=== PATIENT | male | born 1935 | race Caucasian/White ===

== ENCOUNTER 2018-04-01 08:07 | Inpatient (IN) | payer MEDICARE, OTHER ==
[~2018-04-01] VITALS: Ht 180.3 cm; Wt 101.5 kg
[2018-04-01] MEDS ORDERED: acetaminophen 325mg tablet PO STA (08:33)
[2018-04-01] MEDS ORDERED: piperacillin/tazo 3.375gm/50ml 50 ML IV ONE (08:35)
[2018-04-01] MEDS ORDERED: vancomycin/NS 1 GM ADD-VANTAGE 250 ML IV ONE (08:35)
[2018-04-01 09:01] LABS: ABG HCO3 18.4 mmol/L (22.0-26.0); ABG PCO2 (T) 30.8 mmHg (35.0-48.0); ABG PH (T) 7.394 (7.350-7.450); ALLEN'S TEST Positive; FCOHb 0.9 % (0.5-1.5); FMetHb 0.3 % (0.3-1.12); FO2Hb 95.8 % (94-100); MINUTE VOLUME 25 L/min; RESPIRATORY RATE 16 b/min; RESPIRATORY RATE (OBSERVED) 23 b/min; TIDAL VOLUME 598 mL; TOTAL HEMOGLOBIN 17.7 G/dl (14.0-18.0)
[2018-04-01 09:10] LABS: BASOPHILS % (AUTO) 0.2 % (0-1); EOSINOPHILS # (AUTO) 0.1 X10'3 (0-0.9); EOSINOPHILS % (AUTO) 0.3 % (0-6); HEMATOCRIT 54.4 % (42.0-52.0); LYMPHOCYTES # (AUTO) 1.1 X10'3 (1.1-4.8); LYMPHOCYTES % (AUTO) 4.9 % (21-51); MEAN CORPUSCULAR HEMOGLOBIN 31.9 PG (27.0-31.0); MEAN CORPUSCULAR HGB CONC 33.8 % (33.0-36.5); MEAN CORPUSCULAR VOLUME 94.5 FL (78-98); MEAN PLATELET VOLUME 10.4 FL (7.4-10.4); MONOCYTES # (AUTO) 1.1 X10'3 (0-0.9); MONOCYTES % (AUTO) 4.9 % (2-12); NEUTROPHILS % (AUTO) 89.7 % (42-75); PLATELET COUNT 226 X10'3 (140-440); RED BLOOD COUNT 5.76 X10'6 (4.70-6.10); RED CELL DISTRIBUTION WIDTH 13.6 % (11.5-14.5); WHITE BLOOD COUNT 22.3 X10'3 (4.5-11.0)
[2018-04-01] MEDS ORDERED: normal saline 1000ML IV soln IV ONE (09:10)
[2018-04-01] MEDS ORDERED: diltiazem 5mg/ml 5ml inj. IV ONE (09:10)
[2018-04-01 09:12] LABS: HEMOGLOBIN 18.4 g/dl (14.0-17.9)
[2018-04-01 09:32] LABS: D-DIMER 0.82 MG/L FEU (0-0.50); INR 3.4 INR; PARTIAL THROMBOPLASTIN TIME 39 SECONDS (22-32); PROTHROMBIN TIME 32.7 SECONDS (9.0-12.0)
--- NOTE | 2018-04-01 09:35 | NUR ---
PT'S BREATHING IS LESS LABORED AND TACHY AFTER BEING PLACED ON BIPAP
[2018-04-01] MEDS ORDERED: CARV6.253 PO (10:09)
[2018-04-01] MEDS ORDERED: POTA10TA19 PO (10:09)
[2018-04-01] MEDS ORDERED: CINN500C2 (10:19)
[2018-04-01] MEDS ORDERED: FURO-150 PO (10:19)
[2018-04-01] MEDS ORDERED: LOSA25TA96 PO (10:19)
[2018-04-01] MEDS ORDERED: MULT-1074 PO (10:19)
[2018-04-01] MEDS ORDERED: CETI10TA15 PO (10:19)
[2018-04-01] MEDS ORDERED: SIMV10TA2 PO (10:19)
[2018-04-01] MEDS ORDERED: METF500T PO (10:19)
[2018-04-01] MEDS ORDERED: ASPI-1265 PO (10:19)
[2018-04-01] MEDS ORDERED: AMLO2.5T2 PO (10:19)
[2018-04-01] MEDS ORDERED: ALLO100T PO (10:19)
[2018-04-01 10:45] LABS: ALANINE AMINOTRANSFERASE 27 U/L (12-78); ALBUMIN 3.8 G/DL (3.4-5.0); ALKALINE PHOSPHATASE 103 IU/L (46-116); ANION GAP 17 (8-16); ASPARTATE AMINO TRANSFERASE 24 U/L (10-37); BILIRUBIN,TOTAL 1.3 MG/DL (0.1-1.0); BLOOD UREA NITROGEN 18 MG/DL (7-18); BUN/CREATININE RATIO 12.9 (5.4-32.0); CALCIUM 8.7 MG/DL (8.5-10.1); CHLORIDE 101 MMOL/L (99-107); CREATININE 1.39 MG/DL (0.60-1.10); GLUCOSE 259 MG/DL (70-104); POTASSIUM 3.8 MMOL/L (3.5-5.1); SODIUM 139 MMOL/L (135-145); TOTAL CARBON DIOXIDE 21.2 MMOL/L (24-32); TOTAL PROTEIN 7.7 G/DL (6.4-8.2); eGFR 49 ML/MIN
--- NOTE | 2018-04-01 10:50 | NUR ---
pt on 2 L NC sat 91%
[2018-04-01] MEDS ORDERED: ondansetron/PF 4mg/2ml inj IV PRN (11:30)
[2018-04-01] MEDS ORDERED: magnesium 4gm in 100ml NS 100 ML IV PRN (11:30)
[2018-04-01] MEDS ORDERED: magnesium 2GM in 50ml NS 50 ML IV PRN (11:30)
[2018-04-01] MEDS ORDERED: potassium Cl 20 mEq SR tablet PO PRN (11:30)
[2018-04-01] MEDS ORDERED: potassium Cl 40MEQ/NS 500ml 500 ML IV PRN ×2 (11:30)
[2018-04-01] MEDS ORDERED: mag hydrox/Alum hydrox/simeth 30ml oral suspension PO PRN (11:30)
[2018-04-01] MEDS ORDERED: magnesium hydroxide 30ml (MOM) UD suspension PO PRN (11:30)
[2018-04-01] MEDS ORDERED: acetaminophen 325mg tablet PO PRN (11:30)
[2018-04-01] MEDS ORDERED: MESSAGE TO PHARMACY PO ONE (11:40)
[2018-04-01] MEDS ORDERED: glucagon, human recombinant 1mg kit SUBCUT PRN (11:40)
[2018-04-01] MEDS ORDERED: dextrose ORAL solution 15 GM/59 ML bottle PO PRN ×2 (11:40)
[2018-04-01] MEDS ORDERED: aspirin 81mg tab.chew PO SCH (11:40)
[2018-04-01] MEDS ORDERED: dextrose 50%-water 50ml dispensing syringe IV PRN ×2 (11:40)
[2018-04-01] MEDS: CefTRIAXone 2gm/D5W 50ml 50 ML IV SCH (12:42)
[2018-04-01] MEDS: losartan 50mg tablet PO SCH (12:42)
--- NOTE | 2018-04-01 13:16 | NUR ---
PT SITTING UP EATING, STATUS HAS GREATLY IMPROVED
--- NOTE | 2018-04-01 16:52 | NUR ---
Patient in room ED 7. I have received report from ANUSHA Pope and had the opportunity to ask questions. Awaiting pt's arrival to PCU rm 3019E.
[2018-04-01 17:05] VITALS: BP 171/98
--- NOTE | 2018-04-01 17:05 | NUR ---
Pt arrived to 3013A & ambulated independently in to bed without difficulty. Vital signs obtained, pt oriented to call light & room.
[2018-04-01 17:25] VITALS: BP 117/85
--- NOTE | 2018-04-01 18:34 | NUR ---
Problems reprioritized. Patient report given, questions answered & plan of care reviewed with ANUSHA Stanley.
--- NOTE | 2018-04-01 18:56 | NUR ---
PAGER ID: [phone] MESSAGE: [phone]; russ bhatia did you just want one more trop last one was 1.69. also did you want to redraw lactic at some point? lactic was 3.5 thanks brandie Addendum: 04/01/18 at 1957 by Guillaume Staley RN craig notifed about critical trop 1.85 and no new roders given will repeat at midnight; he did not want to repeat lactic acid level
[2018-04-01 19:00] VITALS: BP 139/85
--- NOTE | 2018-04-01 19:06 | NUR ---
Patient in room U 3013. I have received report from chris erwin and had the opportunity to ask questions and assume patient care. Addendum: 04/01/18 at 1906 by Guillaume Staley RN dinner tray ordered; no dinner tray at this time
[2018-04-01] MEDS: insulin Lispro (HumaLOG) vial - multi-dose SQ SCH (19:42)
[2018-04-01] MEDS: carvedilol 6.25mg tablet PO SCH (19:47)
[2018-04-01] MEDS ORDERED: LATA2.5D2 OP (21:30)
[2018-04-01] MEDS: atorvastatin 10mg tablet PO SCH (21:33)
[2018-04-01] MEDS: insulin glargine (Lantus) pen - multi-dose SQ SCH (21:38)
--- NOTE | 2018-04-01 22:33 | NUR ---
attempted to dart pt but he explained he was too tired at this time
[2018-04-01 23:00] VITALS: BP 124/80
[2018-04-02 00:58] LABS: ALANINE AMINOTRANSFERASE 20 U/L (12-78); ALBUMIN 2.6 G/DL (3.4-5.0); ALBUMIN/GLOBULIN RATIO 0.8 (1.1-1.5); ALKALINE PHOSPHATASE 70 IU/L (46-116); ANION GAP 12 (8-16); ASPARTATE AMINO TRANSFERASE 20 U/L (10-37); BILIRUBIN,TOTAL 0.8 MG/DL (0.1-1.0); BLOOD UREA NITROGEN 21 MG/DL (7-18); BUN/CREATININE RATIO 19.1 (5.4-32.0); CALCIUM 7.7 MG/DL (8.5-10.1); CHLORIDE 105 MMOL/L (99-107); GLUCOSE 113 MG/DL (70-104); POTASSIUM 3.3 MMOL/L (3.5-5.1); SODIUM 141 MMOL/L (135-145); TOTAL CARBON DIOXIDE 24.4 MMOL/L (24-32); TOTAL PROTEIN 5.7 G/DL (6.4-8.2); eGFR 64 ML/MIN
[2018-04-02 01:02] LABS: MAGNESIUM 1.4 MG/DL (1.5-2.4)
[2018-04-02 01:08] LABS: TROPONIN I 1.18 NG/ML (0.0-0.05)
[2018-04-02] MEDS: magnesium Cl slow-release 64mg tablet PO PRN ×2 (01:12→16:35)
[2018-04-02] MEDS: potassium Cl 20 mEq SR tablet PO PRN ×3 (01:12→16:35)
[2018-04-02 03:00] VITALS: BP 127/87
[2018-04-02 06:07] LABS: BASOPHILS % (AUTO) 0.3 % (0-1); EOSINOPHILS # (AUTO) 0.2 X10'3 (0-0.9); EOSINOPHILS % (AUTO) 1.6 % (0-6); HEMATOCRIT 43.9 % (42.0-52.0); HEMOGLOBIN 14.8 g/dl (14.0-17.9); LYMPHOCYTES # (AUTO) 1.2 X10'3 (1.1-4.8); LYMPHOCYTES % (AUTO) 10.3 % (21-51); MEAN CORPUSCULAR HEMOGLOBIN 31.7 PG (27.0-31.0); MEAN CORPUSCULAR HGB CONC 33.7 % (33.0-36.5); MEAN PLATELET VOLUME 9.7 FL (7.4-10.4); MONOCYTES # (AUTO) 1.1 X10'3 (0-0.9); MONOCYTES % (AUTO) 9.3 % (2-12); NEUTROPHILS # (AUTO) 9.3 X10'3 (1.8-7.7); NEUTROPHILS % (AUTO) 78.5 % (42-75); PLATELET COUNT 172 X10'3 (140-440); RED BLOOD COUNT 4.67 X10'6 (4.70-6.10); RED CELL DISTRIBUTION WIDTH 13.9 % (11.5-14.5); WHITE BLOOD COUNT 11.9 X10'3 (4.5-11.0)
--- NOTE | 2018-04-02 06:10 | NUR ---
Patient in room PCU 3013. I have received report from Lizeth TAVARES and had the opportunity to ask questions and assume patient care.
--- NOTE | 2018-04-02 06:11 | NUR ---
Problems reprioritized. Patient report given, questions answered & plan of care reviewed with CLIFFORD TAVARES. PATIENT AWAKE AND TALKATIVE IN NO DISTRESS.
[2018-04-02 06:32] LABS: INR 3.4 INR; PROTHROMBIN TIME 32.4 SECONDS (9.0-12.0)
[2018-04-02 07:00] VITALS: BP 143/90
[2018-04-02] MEDS: aspirin 81mg tab.chew PO SCH (07:34)
[2018-04-02] MEDS: cetirizine 10mg tablet PO SCH (07:34)
[2018-04-02] MEDS: carvedilol 6.25mg tablet PO SCH ×2 (07:35→21:23)
[2018-04-02] MEDS: losartan 50mg tablet PO SCH (07:35)
[2018-04-02] MEDS: CefTRIAXone 2gm/D5W 50ml 50 ML IV SCH (07:36)
[2018-04-02] MEDS: allopurinol 100mg tablet PO SCH (07:36)
[2018-04-02] MEDS: azithromycin/NS 500mg/250ml 250 ML IV SCH (08:00)
[2018-04-02] MEDS: K and/or MAG REPLACEMENT MC SCH (08:00)
[2018-04-02] MEDS ORDERED: amLODIPine 5mg tablet PO SCH (08:00)
[2018-04-02] MEDS: insulin Lispro (HumaLOG) vial - multi-dose SQ SCH ×2 (09:54→18:58)
[2018-04-02 11:00] VITALS: BP 124/88
--- NOTE | 2018-04-02 14:22 | NUR ---
DM Consult: Pt/SO seen by TENISHA for written/verbal DM ed w/ RD contact information provided. Pt declined verbal ed.RD answered pt question regarding watermelon portion sizing but pt had no further questions/concerns. Addendum: 04/02/18 at [address] Amended: Links added.
[2018-04-02 15:00] VITALS: BP 146/99
[2018-04-02 19:00] VITALS: BP 166/100
[2018-04-02] MEDS: atorvastatin 10mg tablet PO SCH (21:23)
[2018-04-02] MEDS: insulin glargine (Lantus) pen - multi-dose SQ SCH (21:28)
[2018-04-02 23:00] VITALS: BP 139/71
[2018-04-03 03:00] VITALS: BP 126/96
[2018-04-03 05:59] LABS: BASOPHILS # (AUTO) 0.1 X10'3 (0-0.2); BASOPHILS % (AUTO) 0.8 % (0-1); EOSINOPHILS # (AUTO) 0.1 X10'3 (0-0.9); EOSINOPHILS % (AUTO) 1.1 % (0-6); HEMATOCRIT 43.5 % (42.0-52.0); HEMOGLOBIN 14.9 g/dl (14.0-17.9); LYMPHOCYTES # (AUTO) 1.2 X10'3 (1.1-4.8); LYMPHOCYTES % (AUTO) 12.2 % (21-51); MEAN CORPUSCULAR HEMOGLOBIN 32.2 PG (27.0-31.0); MEAN CORPUSCULAR HGB CONC 34.3 % (33.0-36.5); MEAN CORPUSCULAR VOLUME 93.7 FL (78-98); MEAN PLATELET VOLUME 9.9 FL (7.4-10.4); MONOCYTES # (AUTO) 0.9 X10'3 (0-0.9); MONOCYTES % (AUTO) 9.7 % (2-12); NEUTROPHILS # (AUTO) 7.3 X10'3 (1.8-7.7); NEUTROPHILS % (AUTO) 76.2 % (42-75); PLATELET COUNT 171 X10'3 (140-440); RED BLOOD COUNT 4.65 X10'6 (4.70-6.10); WHITE BLOOD COUNT 9.6 X10'3 (4.5-11.0)
--- NOTE | 2018-04-03 06:08 | NUR ---
Patient in room PCU 3013. I have received report from Nicholas TAVARES and had the opportunity to ask questions and assume patient care.
--- NOTE | 2018-04-03 06:11 | NUR ---
Problems reprioritized. Patient report given, questions answered & plan of care reviewed with CLIFFORD TAVARES.
--- NOTE | 2018-04-03 06:14 | NUR ---
[place]rient[place] documentation: I have reviewed and agree with all interventions, assessments performed and documented by Candis TAVARES.
[2018-04-03 06:15] LABS: ALANINE AMINOTRANSFERASE 31 U/L (12-78); ALBUMIN 2.7 G/DL (3.4-5.0); ALBUMIN/GLOBULIN RATIO 0.9 (1.1-1.5); ALKALINE PHOSPHATASE 75 IU/L (46-116); ANION GAP 10 (8-16); ASPARTATE AMINO TRANSFERASE 31 U/L (10-37); BILIRUBIN,TOTAL 1.2 MG/DL (0.1-1.0); BLOOD UREA NITROGEN 18 MG/DL (7-18); BUN/CREATININE RATIO 18.8 (5.4-32.0); CALCIUM 8.2 MG/DL (8.5-10.1); CHLORIDE 107 MMOL/L (99-107); CREATININE 0.96 MG/DL (0.60-1.10); GLUCOSE 155 MG/DL (70-104); MAGNESIUM 1.7 MG/DL (1.5-2.4); POTASSIUM 4.1 MMOL/L (3.5-5.1); SODIUM 142 MMOL/L (135-145); TOTAL CARBON DIOXIDE 25.4 MMOL/L (24-32); TOTAL PROTEIN 5.8 G/DL (6.4-8.2); eGFR 75 ML/MIN
[2018-04-03 06:16] LABS: INR 2.1 INR; PROTHROMBIN TIME 20.2 SECONDS (9.0-12.0)
--- NOTE | 2018-04-03 06:17 | NUR ---
[place] Medication Administration: For this medication-pass time frame, all medication were reviewed, dispensed, administered and documented per hospital policy by Candis TAVARES.
[2018-04-03 07:00] VITALS: BP 148/76
[2018-04-03] MEDS: CefTRIAXone 2gm/D5W 50ml 50 ML IV SCH (07:21)
[2018-04-03] MEDS: losartan 50mg tablet PO SCH (07:21)
[2018-04-03] MEDS: allopurinol 100mg tablet PO SCH (07:22)
[2018-04-03] MEDS: carvedilol 6.25mg tablet PO SCH ×2 (07:22→20:24)
[2018-04-03] MEDS: cetirizine 10mg tablet PO SCH (07:22)
[2018-04-03] MEDS: K and/or MAG REPLACEMENT MC SCH (08:00)
[2018-04-03] MEDS: azithromycin/NS 500mg/250ml 250 ML IV SCH (08:39)
[2018-04-03] MEDS: aspirin 81mg tab.chew PO SCH (08:39)
[2018-04-03] MEDS: insulin Lispro (HumaLOG) vial - multi-dose SQ SCH ×3 (10:11→18:32)
[2018-04-03 11:00] VITALS: BP 140/98
[2018-04-03 15:00] VITALS: BP 146/82
--- NOTE | 2018-04-03 18:05 | NUR ---
Problems reprioritized. Patient report given, questions answered & plan of care reviewed with Nicholas TAVARES.
[2018-04-03 19:00] VITALS: BP 145/89
[2018-04-03] MEDS: atorvastatin 10mg tablet PO SCH (20:24)
[2018-04-03] MEDS: insulin glargine (Lantus) pen - multi-dose SQ SCH (20:52)
[2018-04-03] MEDS ORDERED: warfarin 5mg tablet PO ONE (21:00)
[2018-04-03 23:00] VITALS: BP 134/88
[2018-04-04 03:00] VITALS: BP 138/85
[2018-04-04 05:08] LABS: INR 1.7 INR; PROTHROMBIN TIME 16.7 SECONDS (9.0-12.0)
[2018-04-04 05:13] LABS: BASOPHILS % (AUTO) 0.4 % (0-1); EOSINOPHILS # (AUTO) 0.3 X10'3 (0-0.9); EOSINOPHILS % (AUTO) 3.2 % (0-6); HEMATOCRIT 42.7 % (42.0-52.0); HEMOGLOBIN 14.5 g/dl (14.0-17.9); LYMPHOCYTES # (AUTO) 1.7 X10'3 (1.1-4.8); LYMPHOCYTES % (AUTO) 19.8 % (21-51); MEAN CORPUSCULAR HGB CONC 33.9 % (33.0-36.5); MEAN CORPUSCULAR VOLUME 94.3 FL (78-98); MEAN PLATELET VOLUME 9.9 FL (7.4-10.4); MONOCYTES # (AUTO) 0.8 X10'3 (0-0.9); MONOCYTES % (AUTO) 9.9 % (2-12); NEUTROPHILS # (AUTO) 5.7 X10'3 (1.8-7.7); NEUTROPHILS % (AUTO) 66.7 % (42-75); PLATELET COUNT 185 X10'3 (140-440); RED BLOOD COUNT 4.53 X10'6 (4.70-6.10); RED CELL DISTRIBUTION WIDTH 14.2 % (11.5-14.5); WHITE BLOOD COUNT 8.5 X10'3 (4.5-11.0)
[2018-04-04 05:26] LABS: ALANINE AMINOTRANSFERASE 36 U/L (12-78); ALBUMIN 2.6 G/DL (3.4-5.0); ALBUMIN/GLOBULIN RATIO 0.8 (1.1-1.5); ALKALINE PHOSPHATASE 70 IU/L (46-116); ANION GAP 9 (8-16); ASPARTATE AMINO TRANSFERASE 33 U/L (10-37); BLOOD UREA NITROGEN 19 MG/DL (7-18); BUN/CREATININE RATIO 17.1 (5.4-32.0); CALCIUM 8.5 MG/DL (8.5-10.1); CHLORIDE 109 MMOL/L (99-107); CREATININE 1.11 MG/DL (0.60-1.10); GLUCOSE 89 MG/DL (70-104); MAGNESIUM 1.7 MG/DL (1.5-2.4); POTASSIUM 3.8 MMOL/L (3.5-5.1); SODIUM 145 MMOL/L (135-145); TOTAL CARBON DIOXIDE 26.8 MMOL/L (24-32); TOTAL PROTEIN 5.7 G/DL (6.4-8.2); eGFR 64 ML/MIN
[2018-04-04 06:00] VITALS: BP 152/93
--- NOTE | 2018-04-04 06:28 | NUR ---
Problems reprioritized. Patient report given, questions answered & plan of care reviewed with JAIR TAVARES.
--- NOTE | 2018-04-04 06:40 | NUR ---
[place]rient[place] documentation: I have reviewed and agree with all interventions, assessments performed and documented by Candis TAVARES.
--- NOTE | 2018-04-04 06:41 | NUR ---
[place] Medication Administration: For this medication-pass time frame, all medication were reviewed, dispensed, administered and documented per hospital policy by Candis TAVARES.
--- NOTE | 2018-04-04 06:42 | NUR ---
[place] Medication Administration: For this medication-pass time frame, all medication were reviewed, dispensed, administered and documented per hospital policy by Candis TAVARES.
[2018-04-04] MEDS: cetirizine 10mg tablet PO SCH (07:45)
[2018-04-04] MEDS: azithromycin/NS 500mg/250ml 250 ML IV SCH (07:45)
[2018-04-04] MEDS: allopurinol 100mg tablet PO SCH (07:45)
[2018-04-04] MEDS: aspirin 81mg tab.chew PO SCH (07:45)
[2018-04-04] MEDS: carvedilol 6.25mg tablet PO SCH ×2 (07:45→20:10)
[2018-04-04] MEDS: CefTRIAXone 2gm/D5W 50ml 50 ML IV SCH (07:45)
[2018-04-04] MEDS: losartan 50mg tablet PO SCH (07:45)
[2018-04-04] MEDS: K and/or MAG REPLACEMENT MC SCH (07:53)
[2018-04-04] MEDS: insulin Lispro (HumaLOG) vial - multi-dose SQ SCH ×3 (09:33→18:59)
[2018-04-04] MEDS ORDERED: iohexol 350MG/ML 100ml bottle IV ONE (10:20)
[2018-04-04 11:00] VITALS: BP 138/98
[2018-04-04] MEDS: MESSAGE TO NURSING PO NR (11:00)
[2018-04-04 15:00] VITALS: BP 135/70
[2018-04-04] MEDS: lactobacillus rhamnosus 10,000 MMU CELLS/CAPSULE PO SCH (20:10)
[2018-04-04] MEDS: atorvastatin 10mg tablet PO SCH (20:10)
[2018-04-04] MEDS: insulin glargine (Lantus) pen - multi-dose SQ SCH (20:57)
[2018-04-04] MEDS ORDERED: warfarin 3mg tablet PO ONE (21:00)
[2018-04-04] MEDS ORDERED: warfarin 4mg tablet PO ONE (21:00)
[2018-04-05 05:52] LABS: BASOPHILS % (AUTO) 0.3 % (0-1); EOSINOPHILS % (AUTO) 0.3 % (0-6); HEMATOCRIT 44.4 % (42.0-52.0); HEMOGLOBIN 14.9 g/dl (14.0-17.9); LYMPHOCYTES # (AUTO) 0.9 X10'3 (1.1-4.8); LYMPHOCYTES % (AUTO) 9.1 % (21-51); MEAN CORPUSCULAR HEMOGLOBIN 31.8 PG (27.0-31.0); MEAN CORPUSCULAR HGB CONC 33.7 % (33.0-36.5); MEAN CORPUSCULAR VOLUME 94.5 FL (78-98); MEAN PLATELET VOLUME 9.5 FL (7.4-10.4); MONOCYTES # (AUTO) 0.6 X10'3 (0-0.9); MONOCYTES % (AUTO) 6.3 % (2-12); NEUTROPHILS # (AUTO) 8.7 X10'3 (1.8-7.7); PLATELET COUNT 207 X10'3 (140-440); RED CELL DISTRIBUTION WIDTH 13.4 % (11.5-14.5); WHITE BLOOD COUNT 10.4 X10'3 (4.5-11.0)
--- NOTE | 2018-04-05 06:04 | NUR ---
Problems reprioritized. Patient report given, questions answered & plan of care reviewed with Harlan TAVARES.
[2018-04-05 06:05] LABS: ALANINE AMINOTRANSFERASE 38 U/L (12-78); ALBUMIN 2.6 G/DL (3.4-5.0); ALBUMIN/GLOBULIN RATIO 0.8 (1.1-1.5); ALKALINE PHOSPHATASE 74 IU/L (46-116); ANION GAP 8 (8-16); ASPARTATE AMINO TRANSFERASE 30 U/L (10-37); BILIRUBIN,TOTAL 0.8 MG/DL (0.1-1.0); BLOOD UREA NITROGEN 21 MG/DL (7-18); BUN/CREATININE RATIO 19.8 (5.4-32.0); CALCIUM 8.3 MG/DL (8.5-10.1); CHLORIDE 108 MMOL/L (99-107); CREATININE 1.06 MG/DL (0.60-1.10); GLUCOSE 91 MG/DL (70-104); INR 1.7 INR; LACTATE DEHYDROGENASE 182 U/L (85-227); MAGNESIUM 1.6 MG/DL (1.5-2.4); POTASSIUM 4.2 MMOL/L (3.5-5.1); PROTHROMBIN TIME 16.8 SECONDS (9.0-12.0); SODIUM 143 MMOL/L (135-145); TOTAL CARBON DIOXIDE 27.2 MMOL/L (24-32); TOTAL PROTEIN 5.7 G/DL (6.4-8.2); eGFR 67 ML/MIN
--- NOTE | 2018-04-05 06:25 | NUR ---
Patient in room PCU 3013. I have received report from Nicholas TAVARES and had the opportunity to ask questions and assume patient care.
--- NOTE | 2018-04-05 06:53 | NUR ---
[place]rient[place] documentation: I have reviewed and agree with all interventions, assessments performed and documented by Candis TAVARES.
[2018-04-05 07:00] VITALS: BP 159/75
[2018-04-05] MEDS: CefTRIAXone 2gm/D5W 50ml 50 ML IV SCH (07:38)
[2018-04-05] MEDS: cetirizine 10mg tablet PO SCH (07:40)
[2018-04-05] MEDS: lactobacillus rhamnosus 10,000 MMU CELLS/CAPSULE PO SCH (07:40)
[2018-04-05] MEDS: losartan 50mg tablet PO SCH (07:41)
[2018-04-05] MEDS: aspirin 81mg tab.chew PO SCH (07:41)
[2018-04-05] MEDS: allopurinol 100mg tablet PO SCH (07:41)
[2018-04-05] MEDS: carvedilol 6.25mg tablet PO SCH (07:41)
[2018-04-05] MEDS ORDERED: azithromycin 250mg tablet PO SCH (08:00)
[2018-04-05] MEDS: K and/or MAG REPLACEMENT MC SCH (08:00)
[2018-04-05] MEDS: insulin Lispro (HumaLOG) vial - multi-dose SQ SCH ×2 (09:11→13:00)
[2018-04-05] MEDS: MESSAGE TO NURSING PO NR (10:08)
[2018-04-05 11:00] VITALS: BP 147/83
--- NOTE | 2018-04-05 13:59 | NUR ---
Initial:Pt admit w/ PNA-Sepsis. Per MD note pt w/ Atrial fibrillation. Per physical assessment sepsis score 0 and MD note states pt lactic acid has normalized. Pt is pending thoracentesis per MD progress notes. Pt PO intake is 100% meeting nutrition needs, Heart Healthy/CHO control. LBM 04/05. No nutrition concerns at this time. Will continue to monitor. Rec: 1. Continue w/ heart healthy and CHO control diet 2. wt per rx Addendum: 04/05/18 at [address] Amended: Links added. Addendum: 04/05/18 at [address] I have reviewed and agree with note by Jogger Operator. Samantha Garrison RD
--- NOTE | 2018-04-05 14:44 | NUR ---
Orientee documentation: I have reviewed and agree with all interventions, assessments performed and documented by ANUSHA Cisse.
--- NOTE | 2018-04-05 14:47 | NUR ---
[place] Medication Administration: For this medication-pass time frame, all medication were reviewed, dispensed, administered and documented per hospital policy by ANUSHA Cisse.
[2018-04-05 15:00] VITALS: BP 146/87
--- NOTE | 2018-04-05 15:55 | NUR ---
PAGER ID: [phone] MESSAGE: [phone] Althea Garcia did not have enough fluid for Dr Pugh to do thoracentesis. ANUSHA Galeano Ext [phone]
--- NOTE | 2018-04-05 16:36 | NUR ---
Dr Pugh and IR team to bedside viewed patients chest with Ultra sound and was determined by Dr Pugh that there was not enough fluid to preform a Thoracenteses on either side
--- NOTE | 2018-04-05 17:31 | NUR ---
PAGER ID: [phone] MESSAGE: [phone] Althea Jose was wondering if he was going to be discharged today? ANUSHA Galeano Ext [phone]
[2018-04-05] MEDS ORDERED: AZI25OT PO (18:01)
[2018-04-05] MEDS ORDERED: LACT1CAP26 PO (18:01)
[2018-04-05] MEDS ORDERED: CEFD300C3 PO (18:01)
--- NOTE | 2018-04-05 18:08 | NUR ---
Problems reprioritized. Patient report given, questions answered & plan of care reviewed with Rossana TAVARES.
--- NOTE | 2018-04-05 19:18 | NUR ---
Patient discharged home in care of his . All d/c instructions reviewed and pt and verbalized understanding. New Rxs were printed and given to patient. IVs and tele monitoring discontinued. Pt escorted out in wheelchair by PCT. No apparent signs of distress. Patient alert and oriented.
[2018-04-05] MEDS ORDERED: warfarin 3mg tablet PO ONE (21:00)
[2018-04-05] MEDS ORDERED: warfarin 4mg tablet PO ONE (21:00)
== END 2018-04-05 19:00 | disposition home or self-care (01) | DRG 871 ==
LOC: ER 08:08 → ED HOLD 11:28 → EDBEDREQ 16:09 → PCU 3S 16:15
PROVIDERS: ADMIT Internal Medicine; ATTEND Family Medicine
PROC: 5A09357 Assistance with Respiratory Ventilation, Less than 24 Consecutive Hours, Continuous Positive Airway Pressure (ICD-10-PCS; principal; 2018-04-01)
PROC: B32T1ZZ Computerized Tomography (CT Scan) of Left Pulmonary Artery using Low Osmolar Contrast (ICD-10-PCS; 2018-04-04)
PROC: B3201ZZ Computerized Tomography (CT Scan) of Thoracic Aorta using Low Osmolar Contrast (ICD-10-PCS; 2018-04-04)
PROC: B32S1ZZ Computerized Tomography (CT Scan) of Right Pulmonary Artery using Low Osmolar Contrast (ICD-10-PCS; 2018-04-04)
DX: A41.9 Sepsis, unspecified organism (principal); J18.1 Lobar pneumonia, unspecified organism; I21.A1 Myocardial infarction type 2; E87.4 Mixed disorder of acid-base balance; I50.22 Chronic systolic (congestive) heart failure; D68.9 Coagulation defect, unspecified; R04.2 Hemoptysis; I48.2 Chronic atrial fibrillation; M10.9 Gout, unspecified; I11.0 Hypertensive heart disease with heart failure; D75.1 Secondary polycythemia; E11.65 Type 2 diabetes mellitus with hyperglycemia; E78.5 Hyperlipidemia, unspecified; E86.0 Dehydration; Z79.01 Long term (current) use of anticoagulants; Z79.899 Other long term (current) drug therapy; Z79.82 Long term (current) use of aspirin
CPT/HCPCS: 36415; 36600; 71045; 71275; 76604; 80053; 82803; 82948; 83036; 83605; 83615; 83735; 83880; 84145; 84439; 84443; 84484; 85018; 85025; 85379; 85610; 85730; 87040; 87070; 87502; 87503; 93005; 93306; 94660; 94760; 96365; 96368; 96375; 97110; 97116; 97161; 99291; G0378; J0456; J0696; J1815; J2543; J3370; J3490; Q9967